=== PATIENT | male | born 1985 | race Caucasian/White ===

== ENCOUNTER 2018-02-10 20:59 | Emergency (ER) | payer BC ==
[~2018-02-10] VITALS: Ht 188 cm; Wt 93.4 kg
[~2018-02-10 20:59] MED LIST: ACETAMINOPHEN/H1 TA6 PO
[2018-02-10 21:16] VITALS: Ht 188 cm; Wt 93.4 kg
[2018-02-11 01:08] LABS: microscopic required? NO
[2018-02-11 01:24] LABS: urine erythrocyte NEGATIVE (NEGATIVE)
[2018-02-11 06:02] VITALS: BP 109/71
== END 2018-02-11 06:02 | disposition home or self-care (01) ==
LOC: ED 20:59
PROVIDERS: Emergency Medicine
DX: S39.012A Strain of muscle, fascia and tendon of lower back, initial encounter (principal); R11.2 Nausea with vomiting, unspecified; Z88.5 Allergy status to narcotic agent; X58.XXXA Exposure to other specified factors, initial encounter; Y93.89 Activity, other specified; Y92.89 Other specified places as the place of occurrence of the external cause; Y99.8 Other external cause status
CPT/HCPCS: J1885; Q0162

== ENCOUNTER 2020-05-31 09:16 | Emergency (ER) | payer BC ==
[~2020-05-31] VITALS: Ht 188 cm; Wt 91.6 kg
[2020-05-31 09:24] VITALS: Ht 188 cm; Wt 91.6 kg
[2020-05-31 10:22] LABS: CALCIUM 9.4 mg/dL (8.5-10.1); CARBON DIOXIDE 26.7 mmol/L (21-32); CHLORIDE SERUM 103 mmol/L (98-107); CREATININE SERUM 1.1 mg/dL (0.7-1.3); GFR1 > 60 mL/min; GLUCOSE SERUM 95 mg/dL (74-106); SODIUM SERUM 138 mmol/L (136-145)
[2020-05-31 10:27] LABS: ALBUMIN 4.2 g/dL (3.4-5.0); ALKALINE PHOSPHATASE 75 U/L (46-116); ALT/SGPT 43 U/L (16-63); AST/SGOT 18 U/L (15-37); BILIRUBIN TOTAL 0.36 mg/dL (0.20-1.00); TOTAL PROTEIN, SERUM 7.5 g/dL (6.4-8.2)
[2020-05-31 10:28] LABS: BASOPHIL % 0.6 % (0-2); PLATELET COUNT 268 x10^3mcL (130-400); RED CELL DISTRIBUTION WIDTH 12.6 % (11.5-14.5)
[2020-05-31 11:04] VITALS: BP 128/68
== END 2020-05-31 11:04 | disposition home or self-care (01) ==
LOC: ED 09:16 → MB 09:16
PROVIDERS: Emergency Medicine
DX: R07.89 Other chest pain (principal); R20.2 Paresthesia of skin; Z88.6 Allergy status to analgesic agent; Z90.89 Acquired absence of other organs
CPT/HCPCS: Q0092

== ENCOUNTER 2020-12-04 20:14 | Emergency (ER) | payer BC ==
[~2020-12-04] VITALS: Ht 188 cm; Wt 88.9 kg
[2020-12-04 20:36] VITALS: Ht 188 cm; Wt 88.9 kg
[2020-12-04] MEDS ORDERED: MOT600 PO (22:45)
[2020-12-04 23:18] VITALS: BP 139/74
== END 2020-12-04 22:55 | disposition home or self-care (01) ==
LOC: ED 20:14
DX: S82.142A Displaced bicondylar fracture of left tibia, initial encounter for closed fracture (principal); Z88.8 Allergy status to other drugs, medicaments and biological substances; V28.0XXA Motorcycle driver injured in noncollision transport accident in nontraffic accident, initial encounter; Y93.55 Activity, bike riding; Y92.488 Other paved roadways as the place of occurrence of the external cause; Y99.8 Other external cause status
CPT/HCPCS: J1885